=== PATIENT | female | born 2000 | race Caucasian/White ===

== ENCOUNTER 2019-06-16 19:12 | Emergency (ER) | payer BC ==
[2019-06-16 19:27] VITALS: BP 103/67
--- NOTE | 2019-06-16 20:00 | UC ---
Throat Pain/Nasal Franko HPI - HPI Summary HPI Summary: 18 y/o female presents to the urgent care c/o sore throat s/ enlarge tonsils for the past 3 days. Pt reports she was Dx w/ [place] 2 months ago and was RX Prednisone PO and advised not to do any strenuous exercise. Pain w/ swallowing is 5/10 and she was doing some [facility] [employer] today and she noticed her spleen feels enlarged as it was 2 months ago. She thinks she has mono again or strep. She has taking Ibuprofen PO to alleviate symptoms. Pt request blood work to r/o mono. Pt states low subjective fever w/ chills at home. Pt denies cough, ENCISO, dizziness, SOB, chest pain,abdominal pain, N/V/D.Hx of STD's - History of Current Complaint Chief Complaint: UCGeneralIllness Stated Complaint: MONO SYMPTOMS Time Seen by Provider: 06/16/19 19:48 Hx Obtained From: Patient Hx Last Menstrual Period: 4 months ago ?: No Onset/Duration: Gradual Onset, Lasting Days - 3 days, Still Present Severity: Moderate Pain Intensity: 5 Pain Scale Used: 0-10 Numeric Cough: None Associated Signs & Symptoms: Positive: Fever - low subjective grade fever yesterday, Rash - excema flare up. Negative: Dysphagia, Wheezing - Allergies/Home Medications Allergies/Adverse Reactions: Allergies Allergy/AdvReac Type Severity Reaction Status Date / Time No Known Allergies Allergy Verified 06/16/19 19:27 Home Medications: Home Medications Biotin 06/16/19 [History] Multivitamin [Multivitamins] 1 each PO 06/16/19 [History] PMH/Surg Hx/FS Hx/Imm Hx Previously Healthy: Yes Other Endocrine History: eczema Respiratory History: Asthma - Surgical History Surgical History: Yes Surgery Procedure, Year, and Place: wisdom teeth - Family History Known Family History: Positive: None - Pt denies PMHX - Social History Occupation: Student Lives: With Family Alcohol Use: Occasionally Substance Use Type: None Smoking Status (MU): Never Smoked Tobacco Review of Systems All Other Systems Reviewed And Are Negative: Yes Constitutional: Positive: Negative Skin: Positive: Rash - flare up of her eczema Eyes: Positive: Negative ENT: Positive: Sore Throat, Other - B/L tonsils enlarged Respiratory: Positive: Negative Cardiovascular: Positive: Negative Gastrointestinal: Positive: Negative Genitourinary: Positive: Negative Motor: Positive: Negative Neurovascular: Positive: Negative Musculoskeletal: Positive: Negative Neurological: Positive: Negative Psychological: Positive: Negative Is Patient Immunocompromised?: No Physical Exam - Summary Physical Exam Summary: VITAL SIGNS: Reviewed. GENERAL: Patient is a well developed and nourished female who is sitting comfortably in the examining table. Patient is not in any acute respiratory distress. HEAD AND FACE: No signs of trauma. No ecchymosis, hematomas or skull depressions. No sinus tenderness. EYES: PERRLA, EOMI x 2, No injected conjunctiva, no nystagmus. No photophobia. EARS: Hearing grossly intact. Ear canals and tympanic membranes are within normal limits. MOUTH: Positive pharynx with erythema, exudates, palatal petechiae. B/L tonsillar enlargement with exudate. Uvula in midline. NECK: Supple, trachea is midline, Positive anterior cervical lymphadenopathy, no JVD, no carotid bruit, no c-spine tenderness, neck with full ROM. No meningeal signs, no Kernig's or brudzinskis signs. CHEST: Symmetric, no tenderness at palpation LUNGS: Clear to auscultation bilaterally. No wheezing or crackles. CVS: Regular rate and rhythm, S1 and S2 present, no murmurs or gallops appreciated. ABDOMEN: Soft, non-tender. No signs of distention. No rebound no guarding, and no masses palpated. Bowel sounds are normal. EXTREMITIES: FROM in all major joints, no edema, no cyanosis or clubbing. NEURO: Alert and oriented x 3. No acute neurological deficits. Speech is normal and follows commands. SKIN: Dry and warm, B/L upper arms w/ eczema Triage Information Reviewed: Yes Vital Signs: Initial Vital Signs Temp 99.3 F 06/16/19 19:23 Pulse 71 06/16/19 19:23 Resp 16 06/16/19 19:23 BP 103/67 06/16/19 19:23 Pulse Ox 100 06/16/19 19:23 Throat Pain/Nasal Course/Dx - Course Course Of Treatment: 18 y/o female presents to the urgent care c/o sore throat s/ enlarge tonsils for the past 3 days. Pt reports she was Dx w/ [place] 2 months ago and was RX Prednisone PO and advised not to do any strenuous exercise. Pain w/ swallowing is 5/10 and she was doing [facility] [employer] and she noticed her spleen feels enlarged as it was 2 months ago. She thinks she has mono again or strep. She has taking Ibuprofen PO to alleviate symptoms. Pt request blood work to r/o mono. Pt states low subjective fever w/ chills at home. Pt denies cough, ENCISO, dizziness, SOB, chest pain,abdominal pain, N/V/D.Hx of STD's. Hx obtained. Pt w/ acute tonsillitis and eczema on examination. Rapid strep ordered, result: negative. Mospost ordered. pt will be notified of any abnormality.Pt Rx Prednisone PO to alleviates symptoms. Advised on hand washing to avoid spreading. Pt advised to rest, eat well and avoid strenuous exercise. If symptoms do not improve or worsen advised to return to the urgent care or f/u with her PCP for further evaluation and treatment. Pt understood and agreed w/ plan of care. - Differential Dx/Diagnosis Differential Diagnosis/HQI/PQRI: Influenza, Laryngitis, Mononucleosis, Peritonsillar Abscess, Pharyngitis, Tonsillitis Provider Diagnosis: Eczema, Acute tonsillitis Discharge ED - Sign-Out/Discharge Documenting (check all that apply): Patient Departure - D/C home All imaging exams completed and their final reports reviewed: No Studies - Discharge Plan Condition: Stable Disposition: HOME Prescriptions: predniSONE 20 mg TAB [Deltasone 20 MG TAB*] 20 mg PO DAILY #11 tab Patient Education Materials: Tonsillitis (ED) Referrals: [facility] [place] [facility] REFERRAL [Outside] - 3 Days Additional Instructions: 1- Please take Prednisone PO as directed to alleviate symptoms 2-Please continue taking ibuprofen PO q6-8hrs prn as instructed after meals to alleviate pain and swelling. Increase fluid intake, eat well, rest and avoid strenuous exercise 3- Rapid strep: negative. Monospot and CBC were sent to lab. Yopu will be notified of any abnormality. 4-If symptoms do not improve or worsen please return to the urgent care or f/u with your PCP in 3 days for further evaluation and treatment. - Billing Disposition and Condition Condition: STABLE Disposition: Home
[2019-06-18 11:48] LABS: EBV Capsid Ag IgG Ab Negative (Negative); EBV Capsid Ag IgM Ab Positive (Negative); Epstein-Barr Nuclear Antigen Negative (Negative)
--- NOTE | 2019-06-19 12:15 | UC ---
- Progress Note Progress Note: 06/19/2019 Monospot: negative. EBV Casip IgG: negative, EBV Capsid IGM: positive, which indicates recent primary infection w/ EBV. Please call back patient and notified her of the result. This can be recent re-infection. However please advised Pt to f/u w/ her PCP for further management. Strongly recommend rest, and avoid strenuous exercises. Gloria Javier PA-C Course/Dx - Diagnoses Provider Diagnoses: Eczema, Acute tonsillitis Discharge ED - Sign-Out/Discharge Documenting (check all that apply): Post-Discharge Follow Up All imaging exams completed and their final reports reviewed: No Studies - Discharge Plan Condition: Stable Disposition: HOME Prescriptions: predniSONE 20 mg TAB [Deltasone 20 MG TAB*] 20 mg PO DAILY #11 tab Patient Education Materials: Tonsillitis (ED) Referrals: [facility] [place] [facility]ERRAL [Outside] - 3 Days Additional Instructions: 1- Please take Prednisone PO as directed to alleviate symptoms 2-Please continue taking ibuprofen PO q6-8hrs prn as instructed after meals to alleviate pain and swelling. Increase fluid intake, eat well, rest and avoid strenuous exercise 3- Rapid strep: negative. Monospot and CBC were sent to lab. Yopu will be notified of any abnormality. 4-If symptoms do not improve or worsen please return to the urgent care or f/u with your PCP in 3 days for further evaluation and treatment. - Billing Disposition and Condition Condition: STABLE Disposition: Home
== END 2019-06-16 21:09 | disposition home or self-care (01) ==
LOC: UCEAST 19:12
DX: L30.9 Dermatitis, unspecified (principal); J03.90 Acute tonsillitis, unspecified; J45.909 Unspecified asthma, uncomplicated
CPT/HCPCS: 36415; 86308; 86664; 86665; 87651; 99202; G0463